=== PATIENT | male | born 1985 | race African-American/Black ===

== ENCOUNTER 2019-02-02 19:04 | Emergency (ER) | payer OTHER ==
[~2019-02-02] VITALS: Ht 175.3 cm; Wt 72.6 kg
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
[2019-02-02] MEDS ORDERED: LIDOCAINE 2% 20 ML VIAL. ONE (19:25)
[2019-02-02] MEDS ORDERED: TETANUS AND DIPHTHERIA TOX/PF 0.5 ML VIAL. VAX IM ONE (19:30)
[2019-02-02] MEDS ORDERED: LIDOCAINE 2%/EPI 1:100,000 20 ML VIAL. IJ ONE (20:00)
[2019-02-02] MEDS ORDERED: DIPHTH,PERTUSS(ACELL),TET TOX 0.5 ML DISP.SYRIN. VAX IM ONE (20:00)
[2019-02-02] MEDS ORDERED: BACITRACIN ZINC TOPICAL OINT PACKET. TP ONE (20:00)
[2019-02-02] MEDS ORDERED: ACETAMINOPHEN 500 MG TABLET PO ONE (20:00)
[2019-02-02 21:00] VITALS: BP 119/64
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
== END 2019-02-02 21:31 | disposition home or self-care (01) ==
LOC: ER 19:04
DX: S01.511A Laceration without foreign body of lip, initial encounter (principal); S20.219A Contusion of unspecified front wall of thorax, initial encounter; Y04.0XXA Assault by unarmed brawl or fight, initial encounter; Y93.89 Activity, other specified; Y92.89 Other specified places as the place of occurrence of the external cause; Y99.8 Other external cause status
CPT/HCPCS: 12011; 70450; 70486; 71046; 72125; 90471; 90715; 99284-25